=== PATIENT | male | born 1975 | race Caucasian/White ===

== ENCOUNTER → 2018-07-13 | Outpatient (CLI) | payer SELFPAY ==
[~2018-07-13] MED LIST: IOHEXOL 300 MG/ML 50 ML VIAL. ONE; LIDOCAINE 1% Multi-Dose 50 ML VIAL. ONE; LIDOCAINE 1%/EPI 1:100,000 20 ML VIAL. ONE
--- NOTE | 2018-07-13 09:04 | PCVCINTER ---
EXAM: PICC PLACEMENT USING ULTRASOUND AND FLUOROSCOPIC GUIDANCE INDICATION: Needs central venous access for treatment. PROCEDURE: Procedure and risks of PICC placement including bleeding, infection, venous thrombosis, and cardiac arrythmmia were discussed with the patient and consent obtained. The left arm was prepped and draped in the normal sterile fashion. Ultrasound was used to visualize the brachial vein and a permanent spot ultrasound image was obtained. Note was made patient's basilic vein was diminutive in size. Under ultrasound guidance access into the brachial vein was obtained and a peel-a-way sheath placed. A 5 Persian double-lumen PICC was placed through the sheath and its tip positioned at the cavo-atrial junction using fluoroscopic guidance. A spot film was obtained. Sheath was removed, PICC was aspirated and flushed, and PICC was secured in place. No immediate complications. FINDINGS: Satisfactory placement of peripherally inserted central venous catheter using ultrasound and fluoroscopic guidance. IMPRESSION: PICC placement as above. LOC:[id number]
== END | disposition home or self-care (01) ==
LOC: EDBD → PCVCINTER 08:27
PROVIDERS: ATTEND Nuclear Medicine Nuclear Cardiology
DX: Z45.2 Encounter for adjustment and management of vascular access device (principal)
CPT/HCPCS: 36573; C1751; J1644; Q9967; 36569; 76937; 77001; J3490